=== PATIENT | male | born 1950 | race Caucasian/White ===

== ENCOUNTER → 2016-12-07 | Outpatient (CLI) | payer MEDICARE ==
--- NOTE | 2016-12-07 11:12 | EST ---
DATE OF SERVICE: 12/07/2016 AGE: 66Y SEX: M HT: WT: lbs. Protocol Jaden: X Other: Cardiolite Stage: I Dur. of Exercise: 3:40 *Heart Rate Blood Pressure *Rest: 84 Rest: 156/77 * *Max. Achieved: 149 Maximum BP: 172/99 85% PMHR: 132 100% PMHR: 155 *METS: 5 INDICATIONS: Abnormal EKG. MEDICATIONS: Atorvastatin, metformin, aspirin. INDICATION OF THE STUDY: Chest pain. STRESS DATA: Pretesting physical examination showed a heart rate of 84. Pressure is 156/77 mmHg. Baseline EKG showed sinus rhythm. The patient exercised on the treadmill according to Jaden protocol for a total of 3 minutes and 40 seconds and achieved 5 METs. Max heart rate was 149, which is about 96% of maximum predicted heart rate. Maximum blood pressure was 172/99 mmHg. Clinically, the patient did not have any symptoms of chest pain or discomfort and the EKG did not show any significant ST or T wave abnormalities consistent with ischemia. CONCLUSION: 1. Poor exercise capacity. 2. Normal EKG in response to exercise. 3. Please follow up on the Cardiolite portion on a separate report.
--- NOTE | 2016-12-07 11:22 | NM ---
EXAMINATION TYPE: NM stress cardiolite complete DATE OF EXAM: 12/07/2016 COMPARISON: NONE HISTORY: Abnormal EKG TECHNIQUE: After the intravenous administration of 10.9 mCi Tc 99m Sestamibi - Rest images obtained 45 minutes post injection. The patient exercised using a LAILA protocol and 1 minute prior to peak exercise was injected with 27.3 mCi Tc 99m Sestamibi - Stress images obtained 15 minutes post injecti on. FINDINGS: Targeted heart rate was achieved during performance of the study. Review of stress and rest SPECT bette ges demonstrates no distinct perfusion abnormality. Gated analysis shows normal wall motion with an estimated left ventricular ejection fraction of 48 %. Some mild septal wall hypokinesia may account f or this slightly low ejection fraction. Normal is greater than 50%. Some diaphragm artifact may be present. IMPRESSION: 1. No suspicious acute infarcts or acute ischemic changes. 2. Slightly low ejection fracture 48% may be related to some hypokinesia of the septal wall
== END | disposition home or self-care (01) ==
LOC: RADNMMAIN 08:48
PROVIDERS: ATTEND Family Medicine
DX: I50.20 Unspecified systolic (congestive) heart failure (principal)
CPT/HCPCS: 93017; 78452; A9500

== ENCOUNTER → 2016-12-27 | Outpatient (CLI) | payer MEDICARE ==
--- NOTE | 2016-12-28 10:07 | ECHOF ---
Referral Reason:I42.9 cardiomyopathy MEASUREMENTS -------- HEIGHT: 172.7 cm WEIGHT: 120.2 kg BP: IVSd: 1.0 cm (0.6 - 1.1) LVIDd: 5.4 cm (3.9 - 5.3) LVPWd: 1.0 cm (0.6 - 1.1) IVSs: 1.7 cm LVIDs: 3.6 cm LVPWs: 1.8 cm Ao Diam: 4.2 cm (2.0 - 3.7) AV Cusp: 2.6 cm (1.5 - 2.6) LA Diam: 3.0 cm (2.7 - 3.8) MV EXCURSION: 21.866 mm (> 18.000) MV EF SLOPE: 121 mm/s (70 - 150) EPSS: 1.1 cm MV E Jerrod: 0.72 m/s MV DecT: 160 ms MV A Jerrod: 0.76 m/s MV E/A Ratio: 0.96 FINDINGS -------- Sinus rhythm. This was a technically difficult study with suboptimal views. Left ventricular wall thickness is normal. Overall left ventricular systolic function is mildly impaired with, an EF between 45 - 50 %. Mid to basal inferiorlateral is hypokinetic The right ventricle is normal in size and function. The left atrium is normal in size. The right atrium is normal in size. 1.5mg of Definity was utilized for enhancement of images Aortic valve is trileaflet and is mildly thickened. The mitral valve leaflets are mildly thickened. There is trace mitral regurgitation. Trace tricuspid regurgitation present. The right ventricular systolic pressure, as measured by Doppler, is {RVSP}. Pulmonic valve appears structurally normal. The aortic root, ascending aorta and aortic arch are normal. The pericardium is normal. CONCLUSIONS -------- 1. Sinus rhythm. 2. Aortic valve is trileaflet and is mildly thickened. 3. The mitral valve leaflets are mildly thickened. 4. There is trace mitral regurgitation. 5. Trace tricuspid regurgitation present. 6. The right ventricular systolic pressure, as measured by Doppler, is {RVSP}. 7. Pulmonic valve appears structurally normal. 8. The aortic root, ascending aorta and aortic arch are normal. 9. The pericardium is normal. 10. This was a technically difficult study with suboptimal views. 11. Left ventricular wall thickness is normal. 12. Overall left ventricular systolic function is mildly impaired with, an EF between 45 - 50 %. 13. Mid to basal inferiorlateral is hypokinetic 14. The right ventricle is normal in size and function. 15. The left atrium is normal in size. 16. The right atrium is normal in size. 17. 1.5mg of Definity was utilized for enhancement of images [employer] MANAGER: Leeann Alberts RDCS
== END | disposition home or self-care (01) ==
LOC: RADECHMAIN 12:51
PROVIDERS: ATTEND Family Medicine
DX: I08.3 Combined rheumatic disorders of mitral, aortic and tricuspid valves (principal)
CPT/HCPCS: C8929; Q9957; 93306

== ENCOUNTER → 2017-01-13 | Outpatient (CLI) | payer MEDICARE | END | disposition home or self-care (01) | LOC: LABMAIN 17:45 | PROVIDERS: ATTEND Internal Medicine Cardiovascular Disease | DX: Z01.818 Encounter for other preprocedural examination (principal); R93.1 Abnormal findings on diagnostic imaging of heart and coronary circulation | CPT/HCPCS: 80051; 82565; 84520; 85027 ==

== ENCOUNTER 2017-01-18 07:48 | Day surgery (SDC) | payer MEDICARE ==
[2017-01-13 09:02] VITALS: BMI 37.6
[2017-01-13 18:26] LABS: CH 31.9; CHCM 34.6; HCT 49.6 % (39.0-53.0); HDW 2.28; HGB 17.1 gm/dL (13.0-17.5); MCH 31.9 pg (25.0-35.0); MCHC 34.4 g/dL (31.0-37.0); MCV 92.7 fL (80.0-100.0); Mean Platelet Volume 8.5; RBC 5.35 m/uL (4.30-5.90); RDW 12.8 % (11.5-15.5); WBC 10.5 k/uL (3.8-10.6)
[2017-01-13 18:40] LABS: Anion Gap 11 mmol/L; Blood Urea Nitrogen 19 mg/dL (9-20); Carbon Dioxide 23 mmol/L (22-30); Chloride 111 mmol/L (98-107); Non-African American GFR(MDRD) >60 (>60 ml/min/1.73 sqM); Potassium 4.6 mmol/L (3.5-5.1); Sodium 145 mmol/L (137-145)
[~2017-01-18 07:48] MED LIST: ALPRAZolam 0.25 MG TAB PO PRN; ALPRAZolam 0.5 MG TAB PO PRN; ASPIRIN 325 MG TAB PO STA; ATORVASTATIN 80 MG TAB PO STA; NITROGLYCERIN SL TABS 0.4 MG TAB SUBLINGUAL PRN; SODIUM CHLORIDE 0.9% 1,000 ML in EMPTY BAG 1 BAG IV ONE
[2017-01-18 08:10] VITALS: TEMP 98.7
[2017-01-18 08:12] LABS: Glucose,Whole Blood 171 mg/dL (75-99)
[2017-01-18] MEDS ORDERED: diphenhydrAMINE 50 MG/ML 1 ML VIAL IVP ONE (08:58)
[2017-01-18] MEDS ORDERED: MIDAZOLAM 2 MG/2 ML VIAL IVP ONE (08:58)
[2017-01-18] MEDS ORDERED: LIDOCAINE 2% INJ 20 MG/ML SQ ONE (09:01)
[2017-01-18] MEDS ORDERED: RX INFO: IV CONTRAST WAS GIVEN 1 EACH MISC MISCELLANE PRN (09:24)
[2017-01-18] MEDS ORDERED: IOHEXOL 350 MG/ML 125ML BOTTLE INJ ONE (09:26)
[2017-01-18] MEDS ORDERED: SODIUM CHLORIDE 0.9% 1,000 ML IV SCH (09:30)
--- NOTE | 2017-01-18 09:49 | PCN ---
INDICATION: Abnormal stress test in a patient with exertion and fatigue. PROCEDURE: After obtaining informed consent, left heart catheterization and coronary angiography were performed via the right femoral artery using standard Jim catheters. The patient tolerated the procedure well without any obvious immediate complications. A femoral angiogram was performed and Angio- Seal was deployed for hemostasis. The patient received moderate conscious sedation with total sedation time was 20 minutes. FINDINGS: HEMODYNAMICS: Left ventricular end diastolic pressure was 14 to 16 mm. There is no significant gradient across the aortic valve. LEFT VENTRICULOGRAM: Left ventriculogram was not performed. ANGIOGRAPHIC DATA: LEFT MAIN CORONARY ARTERY: Left main coronary artery is a normal sized vessel, appears calcified and is free of stenosis. Divides into left anterior descending coronary artery and circumflex coronary artery. LEFT ANTERIOR DESCENDING CORONARY ARTERY: LAD shows mild to moderate atherosclerotic plaque in its proximal part. CIRCUMFLEX CORONARY ARTERY: Circumflex coronary artery gives off a high OM branch. There is moderate atherosclerotic plaque in the ostial portion which at its worse seems to be at 50 to 60% stenosis. Circumflex coronary artery is a large dominant vessel and shows a 50% stenosis. RIGHT CORONARY ARTERY: Right is a small nondominant vessel and is a 60-70% proximal stenosis. CONCLUSION: 1. Three vessel coronary artery disease as described above. 2. Moderate plaque in the ostial portion of the high OM branch. PLAN: Given the fact that the lesion in the OM is very close to left main, the plan at this stage is to treat him with optimal medical therapy with aspirin, nitrates, beta blockers and statins and see how his symptoms evolve. If he is symptomatic, we may bring him back and do a high risk angioplasty of the same. Angiographic data was reviewed by the on-call interventionalist Dr. Olimpia Kessler. DARIN
--- NOTE | 2017-01-18 09:51 | MISC ---
Dear Dr. Colon: I performed cardiac catheterization on Mr. Jeffery Doyle. A detailed catheterization note is enclosed for your records. In brief, the cardiac catheterization revealed mild to moderate three vessel coronary artery disease that is going to be managed with optimal medical therapy at this time. Thank you for giving me the privilege of participating in this pleasant gentleman. DARIN
[2017-01-18 11:38] VITALS: BP 114/74; PULSE 53; RESP 18
== END 2017-01-18 13:43 | disposition home or self-care (01) ==
LOC: CATHCVL 07:48
PROVIDERS: ATTEND Internal Medicine Cardiovascular Disease
DX: I25.10 Atherosclerotic heart disease of native coronary artery without angina pectoris (principal); Z87.891 Personal history of nicotine dependence; E78.2 Mixed hyperlipidemia; E11.9 Type 2 diabetes mellitus without complications; Z79.84 Long term (current) use of oral hypoglycemic drugs
CPT/HCPCS: 93458; 80051; 82565; 84520; 85027; 99152; C1760; C1894; C1769; J2001; J2250; J1200; Q9967

== ENCOUNTER → 2018-11-24 | Outpatient (CLI) | payer MEDICARE ==
[2018-11-24 16:08] LABS: LDL Cholesterol,Calculated 69.6 mg/dL (0.0-131.0); VLDL Calculation 18.4 mg/dL (5.00-40.00)
== END ==
LOC: LABWHC1 09:24
PROVIDERS: ATTEND Internal Medicine Cardiovascular Disease
DX: E78.2 Mixed hyperlipidemia (principal)
CPT/HCPCS: 36415; 80061; 82550; 84450; 84460

== ENCOUNTER → 2018-12-19 | Outpatient (CLI) | payer MEDICARE ==
[2018-12-20 02:52] LABS: African American GFR (CKD) 107.1 (60.0-200.0)
== END | disposition home or self-care (01) ==
LOC: LABWHC1 16:24
PROVIDERS: ATTEND Ophthalmology
DX: H05.20 Unspecified exophthalmos (principal)
CPT/HCPCS: 36415; 82565; 84520

== ENCOUNTER → 2019-01-12 | Outpatient (CLI) | payer MEDICARE | END | disposition home or self-care (01) | LOC: LABWHC1 11:30 | PROVIDERS: ATTEND Ophthalmology Ophthalmic Plastic and Reconstructive Surgery | DX: H05.241 Constant exophthalmos, right eye (principal) | CPT/HCPCS: 36415; 84443; 84445; 86376 ==

== ENCOUNTER → 2019-03-09 | Outpatient (CLI) | payer MEDICARE ==
[2019-03-09 16:29] LABS: African American GFR (CKD) 89.2 (60.0-200.0); Albumin 4.4 g/dL (3.80-4.90); Anion Gap 8.8 mmol/L (4.00-12.00); Calcium 9.3 mg/dL (8.7-10.3); Carbon Dioxide 23.2 mmol/L (21.6-31.8); Chol/HDL Ratio 2.83; Globulin 2.2 g/dL (1.6-3.3); LDL Cholesterol,Calculated 64.6 mg/dL (0.0-131.0); Potassium 4.3 mmol/L (3.5-5.5); Total Bilirubin 1.2 mg/dL (0.3-1.2); Total Protein 6.6 g/dL (6.2-8.2); VLDL Calculation 23.4 mg/dL (5.00-40.00)
[2019-03-09 18:00] LABS: Hemoglobin A1C 6.3 % (4.0-6.0)
== END | disposition home or self-care (01) ==
LOC: LABWHC1 09:14
PROVIDERS: ATTEND Internal Medicine Endocrinology, Diabetes & Metabolism
DX: E11.9 Type 2 diabetes mellitus without complications (principal)
CPT/HCPCS: 36415; 80053; 80061; 82043; 82570; 83036; 84443

== ENCOUNTER 2019-09-19 07:20 | Day surgery (SDC) | payer MEDICARE ==
[2019-09-17 15:50] VITALS: BMI 35.1
[~2019-09-19 07:20] MED LIST changes: -ALPRAZolam 0.25 MG TAB PO PRN; -ALPRAZolam 0.5 MG TAB PO PRN; -ASPIRIN 325 MG TAB PO STA; -ATORVASTATIN 80 MG TAB PO STA; +LACTATED RINGERS 1,000 ML IV SCH; +LIDOCAINE 1% (10MG/ML) FOR IV START INTRADERMA PRN; -NITROGLYCERIN SL TABS 0.4 MG TAB SUBLINGUAL PRN; -SODIUM CHLORIDE 0.9% 1,000 ML in EMPTY BAG 1 BAG IV ONE
[2019-09-19] MEDS ORDERED: LACTATED RINGERS 1,000 ML IV ONE (07:25)
[2019-09-19 07:57] VITALS: RESP 16; TEMP 98.1
[2019-09-19 07:57] LABS: Glucose,Whole Blood 177 mg/dL (75-99)
[2019-09-19] MEDS ORDERED: LIDOCAINE 1% INJ 10MG/ML (20 ML MDV) ONE (08:30)
[2019-09-19] MEDS ORDERED: PROPOFOL 10 MG/ML 20 ML VIAL IV ONE (08:30)
--- NOTE | 2019-09-19 08:51 | P.PCN ---
Date of Procedure: 09/19/19 Procedure(s) Performed: BRIEF HISTORY: Patient is a 61-year-old pleasant male scheduled for an elective colonoscopy as a part of screening for colorectal neoplasia. PROCEDURE PERFORMED: Colonoscopy. PREOPERATIVE DIAGNOSIS: Screening for colon cancer. IV sedation per Anesthesia. PROCEDURE: After informed consent was obtained, the patient, was brought into the endoscopy unit. IV sedation was administered by Anesthesia under continuous monitoring. Digital rectal examination was normal. Initially the Olympus CF-160 flexible video colonoscope was then inserted in the rectum, gradually advanced into the cecum without any difficulty. Careful examination was performed as the scope was gradually being withdrawn. Ileocecal valve and the appendiceal orifice were visualized and appeared normal. Prep was excellent. Mucosa of the cecum, ascending colon, transverse colon, descending colon, sigmoid colon, and rectum appeared normal. Retroflexion was performed in the rectum and no lesions were seen. The patient tolerated the procedure well. IMPRESSION: Normal-appearing colon from rectum to cecum with no evidence of colorectal neoplasia. Scattered sigmoidal diverticulosis. RECOMMENDATIONS: Findings of this examination were discussed with the patient as well as his family.. He was advised to have a repeat screening colonoscopy in 10 years.
[2019-09-19 09:18] VITALS: BP 123/76; PULSE 69
== END 2019-09-19 09:32 | disposition home or self-care (01) ==
LOC: ORWHC2ENDO 07:20
PROVIDERS: ATTEND Internal Medicine Gastroenterology
DX: Z12.11 Encounter for screening for malignant neoplasm of colon (principal); K57.30 Diverticulosis of large intestine without perforation or abscess without bleeding; I10 Essential (primary) hypertension; E78.5 Hyperlipidemia, unspecified; E11.9 Type 2 diabetes mellitus without complications; N40.0 Benign prostatic hyperplasia without lower urinary tract symptoms; Z88.0 Allergy status to penicillin; Z79.1 Long term (current) use of non-steroidal anti-inflammatories (NSAID); Z79.82 Long term (current) use of aspirin; Z79.899 Other long term (current) drug therapy; Z87.442 Personal history of urinary calculi; Z79.84 Long term (current) use of oral hypoglycemic drugs
CPT/HCPCS: J2001; J2704; G0121

== ENCOUNTER → 2019-11-27 | Outpatient (CLI) | payer MEDICARE | END | disposition home or self-care (01) | LOC: LABWHC1 11:48 | PROVIDERS: ATTEND Urology | DX: R35.0 Frequency of micturition (principal) | CPT/HCPCS: 36415; 84153 ==

== ENCOUNTER → 2020-01-07 | Outpatient (CLI) | payer MEDICARE ==
[2020-01-07 18:20] LABS: African American GFR (CKD) 79.5 (60.0-200.0); Albumin 4.1 g/dL (3.80-4.90); Albumin/Globulin Ratio 1.78 (1.60-3.17); BUN/Creat Ratio 19.09 Ratio (12.00-20.00); Calcium 9.3 mg/dL (8.7-10.3); Chol/HDL Ratio 3.47; Globulin 2.3 g/dL (1.6-3.3); LDL Cholesterol,Calculated 70.2 mg/dL (0.0-131.0); Non-African American GFR(CKD) 68.6 (60.0-200.0); Potassium 4.7 mmol/L (3.5-5.5); Total Bilirubin 0.9 mg/dL (0.2-1.2); Total Protein 6.4 g/dL (6.2-8.2); VLDL Calculation 23.8 mg/dL (5.00-40.00)
[2020-01-07 18:25] LABS: Hemoglobin A1C 6.7 % (4.0-6.0)
[2020-01-07 19:01] LABS: Urine Creatinine 162.7 mg/dL
== END | disposition home or self-care (01) ==
LOC: LABWHC1 08:20
PROVIDERS: ATTEND Internal Medicine Endocrinology, Diabetes & Metabolism
DX: E11.9 Type 2 diabetes mellitus without complications (principal)
CPT/HCPCS: 36415; 80053; 80061; 82043; 82570; 83036; 84443

== ENCOUNTER → 2020-08-04 | Outpatient (CLI) | payer MEDICARE ==
[2020-08-04 19:54] LABS: Urine Creatinine 122.5 mg/dL
[2020-08-04 20:09] LABS: African American GFR (CKD) 100.6 (60.0-200.0); Albumin 4.5 g/dL (3.80-4.90); Albumin/Globulin Ratio 1.96 (1.60-3.17); Anion Gap 15.7 mmol/L (4.00-12.00); BUN/Creat Ratio 21.11 Ratio (12.00-20.00); Calcium 9.2 mg/dL (8.7-10.3); Carbon Dioxide 24.3 mmol/L (21.6-31.8); Chol/HDL Ratio 4.45; Globulin 2.3 g/dL (1.6-3.3); LDL Cholesterol,Calculated 94.6 mg/dL (0.0-131.0); Non-African American GFR(CKD) 86.8 (60.0-200.0); Potassium 4.7 mmol/L (3.5-5.5); Total Bilirubin 1.1 mg/dL (0.3-1.2); Total Protein 6.8 g/dL (6.2-8.2); VLDL Calculation 43.4 mg/dL (5.00-40.00)
[2020-08-04 21:11] LABS: Hemoglobin A1C 6.6 % (4.0-6.0)
== END | disposition home or self-care (01) ==
LOC: LABWHC1 10:50
PROVIDERS: ATTEND Internal Medicine Endocrinology, Diabetes & Metabolism
DX: E11.65 Type 2 diabetes mellitus with hyperglycemia (principal); E78.2 Mixed hyperlipidemia
CPT/HCPCS: 36415; 80053; 80061; 82043; 82570; 83036; 84443

== ENCOUNTER → 2021-02-26 | Outpatient (CLI) | payer MEDICARE, OTHER ==
[2021-02-26 18:01] LABS: Albumin 4.5 g/dL (3.80-4.90); Albumin/Globulin Ratio 1.67 (1.60-3.17); Anion Gap 10.4 mmol/L (4.00-12.00); Calcium 9.2 mg/dL (8.7-10.3); Carbon Dioxide 21.6 mmol/L (21.6-31.8); Chol/HDL Ratio 3.35; Globulin 2.7 g/dL (1.6-3.3); LDL Cholesterol,Calculated 79.6 mg/dL (0.0-131.0); Non-African American GFR(CKD) 75.9 (60.0-200.0); Potassium 4.1 mmol/L (3.5-5.5); Total Bilirubin 0.7 mg/dL (0.2-1.2); Total Protein 7.2 g/dL (6.2-8.2); VLDL Calculation 21.4 mg/dL (5.00-40.00)
[2021-02-26 18:17] LABS: Hemoglobin A1C 6.9 % (4.0-6.0)
[2021-02-26 19:16] LABS: Urine Creatinine 130.8 mg/dL
== END | disposition home or self-care (01) ==
LOC: LABWHC1 09:14
PROVIDERS: ATTEND Internal Medicine Cardiovascular Disease
DX: E78.2 Mixed hyperlipidemia (principal); E11.65 Type 2 diabetes mellitus with hyperglycemia
CPT/HCPCS: 36415; 80053; 80061; 82043; 82570; 83036; 84443

== ENCOUNTER 2021-05-19 20:18 | Emergency (ER) | payer MEDICARE, OTHER ==
--- NOTE | 2021-05-19 20:57 | XR ---
EXAMINATION TYPE: XR shoulder complete LT DATE OF EXAM: 05/19/2021 COMPARISON: NONE HISTORY: Pain TECHNIQUE: 2 views FINDINGS: There is anterior dislocation of the glenohumeral joint. I see no fracture line. IMPRESSION: Anterior dislocation.
[2021-05-19] MEDS ORDERED: ONDANSETRON 4 MG/2 ML VIAL IVP STA (21:56)
[2021-05-19] MEDS ORDERED: MORPHINE SULFATE 2 MG/ML SYRINGE IVP STA (21:56)
[2021-05-19] MEDS ORDERED: PROPOFOL 10 MG/ML 20 ML VIAL IV STA (21:57)
--- NOTE | 2021-05-19 22:52 | ED ---
General Adult HPI - General Source: patient Mode of arrival: ambulatory Limitations: no limitations <Cash Rodriguez - Last Filed: 05/19/21 22:53> <Sammi Hoffman - Last Filed: 05/20/21 00:08> - General Chief complaint: Extremity Injury, Upper Stated complaint: Fell on LT shoulder Time Seen by Provider: 05/19/21 21:46 - History of Present Illness Initial comments: 71 year-old male patient presents to the emergency department for evaluation of left shoulder pain after a fall. States around 3:30 pm he tripped on a rubber mat that was beneath some leaves. States he took the brunt of the fall on the left shoulder. Denies hitting his head or losing consciousness. His any neck or back pain. He denies any numbness to the hand does report some mild tingling. Denies taking any medication for his pain. Denies any other injuries or concerns. (Sammi Hoffman) - Related Data Home Medications Medication Instructions Recorded Confirmed Aspirin [Children's Aspirin] 81 mg PO DAILY 01/13/17 05/19/21 Atorvastatin [Lipitor] 10 mg PO HS 01/13/17 05/19/21 Isosorbide Mononitrate [Isosorbide 30 mg PO DAILY 01/13/17 05/19/21 Mononitrate ER] Tamsulosin HCl [Flomax] 0.4 mg PO HS 01/13/17 05/19/21 metFORMIN HCL [Glucophage] 1,000 mg PO BID 01/13/17 05/19/21 Losartan [Cozaar] 25 mg PO DAILY 09/17/19 05/19/21 Metoprolol Tartrate [Lopressor] 25 mg PO DAILY 09/17/19 05/19/21 Allergies Allergy/AdvReac Type Severity Reaction Status Date / Time Penicillins Allergy Rash/Hives Verified 05/19/21 23:21 Review of Systems ROS Other: All systems not noted in ROS Statement are negative. <Cash Rodriguez - Last Filed: 05/19/21 22:53> ROS Other: All systems not noted in ROS Statement are negative. <Sammi Hoffman - Last Filed: 05/20/21 00:08> ROS Statement: Those systems with pertinent positive or pertinent negative responses have been documented in the HPI. Past Medical History Past Medical History: Cancer, Diabetes Mellitus, Hyperlipidemia, Hypertension, Prostate Disorder, Rheumatoid Arthritis (RA) Additional Past Medical History / Comment(s): hx of basal cell skin ca, HX OF KIDNEY STONES History of Any Multi-Drug Resistant Organisms: None Reported Past Surgical History: Orthopedic Surgery Additional Past Surgical History / Comment(s): left knee sx, ayleen large toe nails removed, Past Anesthesia/Blood Transfusion Reactions: No Reported Reaction Past Psychological History: No Psychological Hx Reported Past Alcohol Use History: Occasional Past Drug Use History: None Reported - Past Family History Mother Family Medical History: Cancer Additional Family Medical History / Comment(s): basal cell skin ca <Cash Rodriguez - Last Filed: 05/19/21 22:53> General Exam Limitations: no limitations <Cash Rodriguez - Last Filed: 05/19/21 22:53> General appearance: alert, in no apparent distress, other (This is a well- developed, well-nourished adult male in no acute distress.) Neck exam: Present: normal inspection, full ROM, other (Nontender, no step-off, no deformity to firm midline palpation of the posterior cervical spine. Full range of motion without pain or limitation.). Absent: tenderness, meningismus, lymphadenopathy Respiratory exam: Present: normal lung sounds bilaterally. Absent: respiratory distress, wheezes, rales, rhonchi, stridor Cardiovascular Exam: Present: regular rate, normal rhythm, normal heart sounds. Absent: systolic murmur, diastolic murmur, rubs, gallop, clicks GI/Abdominal exam: Present: soft, normal bowel sounds. Absent: distended, tenderness, guarding, rebound, rigid Neurological exam: Present: alert, oriented X3, CN II-XII intact Psychiatric exam: Present: normal affect, normal mood Skin exam: Present: warm, dry, intact, normal color. Absent: rash <Sammi Hoffman - Last Filed: 05/20/21 00:08> Course Vital Signs 05/19/21 05/19/21 05/19/21 20:25 22:34 22:35 Temperature 98.8 F Pulse Rate 91 78 101 H Respiratory 19 20 16 Rate Blood Pressure 164/89 159/92 159/84 O2 Sat by Pulse 97 99 99 Oximetry 05/19/21 05/19/21 05/19/21 22:40 22:45 22:50 Temperature Pulse Rate 87 96 97 Respiratory 18 21 20 Rate Blood Pressure 141/87 120/76 120/96 O2 Sat by Pulse 99 98 98 Oximetry 05/19/21 05/19/21 22:55 23:00 Temperature Pulse Rate 91 98 Respiratory 21 20 Rate Blood Pressure 136/85 151/85 O2 Sat by Pulse 99 98 Oximetry Procedures - Procedural Sedation Procedural Sedation Start Time: 22:35 Procedural Sedation Stop Time: 22:56 Indications: fracture/dislocation reduction ASA Class: II Mallampati Airway Score: 2 Preparation: servicenow administrator developer applied, pulse oximeter, capnometry used, supplemental O2 applied IV Propofol Dose (mgs): 150 Complications: none Patient Tolerated Procedure: well, no complications <Cash Rodriguez - Last Filed: 05/19/21 22:53> Medical Decision Making - Radiology Data Radiology results: report reviewed, image reviewed <Sammi Hoffman - Last Filed: 05/20/21 00:08> - Medical Decision Making 71-year-old male patient presents to the emergency department today for evaluation of left shoulder injury. Physical examination did reveal deformity consistent with dislocation. Neurovascular status was intact. X-ray was obtained and did show an anterior dislocation. My attending was in and did perform conscious sedation with closed reduction of the left shoulder which was successful. Repeat x-ray shows the shoulder is reduced. Patient is awake and alert from sedation. He'll be discharged to follow-up with orthopedics for further evaluation as soon as possible. Return parameters were discussed in detail. He verbalizes understanding and agrees with this plan. Case discussed with my attending Dr. Rodriguez. (Sammi Hoffman) - Radiology Data 2 views of the left shoulder obtained. Report was reviewed in its entirety. Impression by Dr. Frey shows anterior dislocation. Single view of the left shoulders obtained. Report was reviewed in its entirety. Impression by Dr. Frey shows anatomic reduction of the glenohumeral joint. (Sammi Hoffman) Disposition <Cash Rodriguez - Last Filed: 05/19/21 22:53> Is patient prescribed a controlled substance at d/c from ED?: No Time of Disposition: 00:08 <Sammi Hoffman - Last Filed: 05/20/21 00:08> Clinical Impression: Dislocation of left shoulder joint Disposition: HOME SELF-CARE Condition: Good Instructions (If sedation given, give patient instructions): Shoulder Dislocation (ED) Additional Instructions: Use sling until follow-up with orthopedics. Take Tylenol Motrin for pain contro l. Return for any new, worsening, or concerning symptoms. Referrals: Ashley Rosado MD [Primary Care Provider] - 1-2 days Ed Varghese DO [Doctor of Osteopathic Medicine] - 1-2 days
[2021-05-19 23:21] VITALS: PULSE 98
--- NOTE | 2021-05-19 23:23 | XR ---
EXAMINATION TYPE: XR shoulder limited LT DATE OF EXAM: 05/19/2021 COMPARISON: Today HISTORY: Post reduction TECHNIQUE: Single view FINDINGS: There is anatomic position of the glenohumeral joint. I see no fracture line. IMPRESSION: Anatomic reduction of the glenohumeral joint.
[2021-05-20 00:53] VITALS: BP 146/84; RESP 18; TEMP 98
== END 2021-05-20 00:53 | disposition home or self-care (01) ==
LOC: EC 20:18
DX: S43.005A Unspecified dislocation of left shoulder joint, initial encounter (principal); E11.9 Type 2 diabetes mellitus without complications; I10 Essential (primary) hypertension; M06.9 Rheumatoid arthritis, unspecified; E78.5 Hyperlipidemia, unspecified; Z79.82 Long term (current) use of aspirin; Z79.84 Long term (current) use of oral hypoglycemic drugs; Z79.899 Other long term (current) drug therapy; Z88.0 Allergy status to penicillin; W01.0XXA Fall on same level from slipping, tripping and stumbling without subsequent striking against object, initial encounter
CPT/HCPCS: 73030; 73020; 23650; 99284; 96374; 96375; J2405; J2270; J2704

== ENCOUNTER → 2021-11-10 | Outpatient (CLI) | payer MEDICARE, OTHER ==
[2021-11-10 19:11] LABS: ALT 35 U/L (10-49); AST 23 U/L (14-35); African American GFR (CKD) 94.2 (60.0-200.0); Albumin 4.7 g/dL (3.8-4.9); Albumin/Globulin Ratio 1.75 (1.60-3.17); Alkaline Phosphatase 78 U/L (41-126); BUN/Creat Ratio 15.66 Ratio (12.00-20.00); Blood Urea Nitrogen 14.8 mg/dL (9.0-27.0); Calcium 9.5 mg/dL (8.7-10.3); Carbon Dioxide 24.7 mmol/L (20.0-27.5); Chloride 103 mmol/L (96-109); Chol/HDL Ratio 3.27 Ratio; Globulin 2.7 g/dL (1.6-3.3); Glucose 160 mg/dL (70-110); LDL Cholesterol,Calculated 75.7 mg/dL (0.0-131.0); Non-African American GFR(CKD) 81.3 (60.0-200.0); Potassium 4.7 mmol/L (3.5-5.5); Sodium 139 mmol/L (135-145); Total Protein 7.3 g/dL (6.2-8.2)
== END | disposition home or self-care (01) ==
LOC: LABWHC1 10:51
PROVIDERS: ATTEND Internal Medicine Cardiovascular Disease
DX: E11.65 Type 2 diabetes mellitus with hyperglycemia (principal); E78.2 Mixed hyperlipidemia
CPT/HCPCS: 36415; 80053; 80061; 82043; 82570; 83036; 84443

== ENCOUNTER → 2021-12-21 | Outpatient (CLI) | payer MEDICARE, OTHER | END | disposition home or self-care (01) | LOC: LABWHC1 10:30 | PROVIDERS: ATTEND Surgery Vascular Surgery | DX: Z20.822 Contact with and (suspected) exposure to COVID-19 (principal) ==